=== PATIENT | female | born 1980 | race Caucasian/White ===

== ENCOUNTER 2016-12-24 12:12 | Observation (INO) | payer OTHER ==
--- NOTE | 2016-12-24 14:04 | GHP ---
[f rep st] HISTORY AND PHYSICAL DATE OF ADMISSION: 12/24/2016 CHIEF COMPLAINT: Brown discharge and possible leakage of fluid. HISTORY OF PRESENT ILLNESS: The patient is a 36-year-old 1, para 0 female at 39 weeks and 3 days estimated gestational age, with report of a brown watery discharge this morning and cramping o vernight. She reports it was primarily mucousy brown discharge, but then within an hour or 2 where it seemed more watery. She denies any current discharge or leakage of fluid, denies any vaginal ble eding and reports good movement. The patient's is significant for being GBS negativ e. PAST MEDICAL HISTORY: Abnormal Pap. PAST SURGICAL HISTORY: Jaw surgery and a LEEP. ALLERGIES: Sulfa, and trimethoprim. SOCIAL HISTORY: The patient is . She denies any tobacco, alcohol, or drug use. MEDICATIONS: vitamin. OBSTETRIC PROBLEM LIST: Rubella nonimmune, mild anemia on iron, status post the flu and Tdap shot. LABS: Blood type O positive. Antibody screen negative. Rubella nonimmune. Varicella imm une. RPR nonreactive. Urine culture negative. Hepatitis B surface antigen negative. HIV negative . One hour GTT normal. GBS negative. PHYSICAL EXAMINATION: VITAL SIGNS: Blood pressure 133/75, heart rate 93, respiratory rate 20, O2 s aturation 97%, temp 36.7 degrees Fahrenheit. heart rate tracing 130s, reactive and reassuring with spontaneous accelerations and moderate variability present and no decelerations. Tocometer: Mild irritability seen. No clear contractions. GENERAL: No acute distress, well-developed, well-n ourished female. ABDOMEN: Gravid and nontender. PELVIC: Sterile speculum exam: Negative pooling , Valsalva and ferning. The pH normal and acidic. Cervix was 1, 80, -3 and ballotable. ULTRASOUND: Bedside ultrasound was performed confirming baby is vertex and an RHONDA is 21.4 cm with g ood movement noted. ASSESSMENT: The patient is a 36-year-old 1, para 0 female at 39 weeks and 3 days estimated gestational age, with no signs of ruptured membranes. PLAN: Will discharge the patient home with labor precautions, kick count precautions and pree clampsia precautions. GBS negative. Her workup has been completed with no signs of ruptured membranes. /[id number]/MODL
== END 2016-12-24 13:30 | disposition home or self-care (01) ==
LOC: FLD 12:12
PROVIDERS: ADMIT Obstetrics & Gynecology; ATTEND Obstetrics & Gynecology
DX: Z34.03 Encounter for supervision of normal first pregnancy, third trimester (principal); N89.8 Other specified noninflammatory disorders of vagina; Z3A.39 39 weeks gestation of pregnancy
CPT/HCPCS: 59025; 76815; G0378

== ENCOUNTER 2016-12-31 09:50 | Observation (INO) | payer OTHER ==
--- NOTE | 2016-12-31 12:06 | SOAPPROG ---
SOAP Progress Note Assessment/Plan: Assessment: G1 at 40w3d with dec fm, reassuring status and normal fluid BPs slightly elevated, consistent with BPs in office over last week. Not meeting criteria for GHTN Not in labor Plan: Offered IOL today for dec FM s/p FREDI. After discussion parents prefer to go home now as they feel baby is moving more and return tomorrow for induction. Agree with plan. Will come to office at 1645 tmw for FB placement. Advised to call if FM remains decreased today or they change their mind and want to proceed with IOL labor. 12/31/16 12:06 Subjective: Dec FM x 24 hours. Baby is moving still but just not as pronounced and not as much. Getting 2-4 kicks/hr. Uncomplicated first , pt of Dr. White Objective: 132/72, 83 Gen: NAD Resp: unlabored CV: RRR Abd: gravid, soft, nontender Ext: no edema SVE: /-3/vtx/intact (no change from office). Membranes stripped TAUS: Vertex. RHONDA = 19.6 cm FHR baseline 140, mod rosie, + acc, no decel Contractions: few ICD10 Worksheet Patient Problems: Problems Problem Status Onset 40 weeks gestation of Acute Decreased movement Acute
== END 2016-12-31 12:05 | disposition home or self-care (01) ==
LOC: FLD 09:50
PROVIDERS: ADMIT Obstetrics & Gynecology; ATTEND Obstetrics & Gynecology
DX: O36.8130 Decreased fetal movements, third trimester, not applicable or unspecified (principal); O48.0 Post-term pregnancy; Z3A.40 40 weeks gestation of pregnancy
CPT/HCPCS: 59025; G0378

== ENCOUNTER 2017-01-01 05:50 | Inpatient (IN) | payer OTHER ==
[2017-01-01] MEDS ORDERED: EPSOM SALT 454 GM TP PRN (07:16)
[2017-01-01] MEDS ORDERED: LIDOCAINE 1% 30 ML SDV SC PRN (07:16)
[2017-01-01] MEDS ORDERED: OXYTOCIN/RINGERS LACTATE 1,000 ML IV PRN (07:16)
[2017-01-01] MEDS ORDERED: LR 1,000 ML IV PRN (07:16)
[2017-01-01] MEDS ORDERED: OLIVE OIL 118 ML BTL MISC PRN (07:16)
[2017-01-01] MEDS ORDERED: TERBUTALINE SULFATE 1 MG/ML VIAL IV PRN (07:16)
[2017-01-01 07:38] LABS: % IMMATURE GRANULYOCYTES 0.6 % (0.0-1.1); ABSOLUTE IMMATURE GRANULOCYTES 0.06 10^3/uL (0.00-0.10); ADD DIFF? NO; ADD MORPH? NO; ADD SCAN? NO; ATYPICAL LYMPHOCYTE FLAG 10 (0-99); FRAGMENT RBC FLAG 0 (0-99); HEMOGLOBIN 15.1 g/dL (12.6-16.3); LEFT SHIFT FLG 0 (0-99); LIPEMIA HEMOLYSIS FLAG 90 (0-99); MEAN CELL HEMOGLOBIN 32.5 pg (27.9-34.1); MEAN CELL HEMOGLOBIN CONCENTR. 35.1 g/dL (32.4-36.7); MEAN CELL VOLUME 92.7 fL (81.5-99.8); MEAN PLATELET VOLUME 12.6 fL (8.7-11.7); PLATELET CLUMPS FLAG 30 (0-99); PLATELET COUNT 173 10^3/uL (150-400); RED BLOOD CELL COUNT 4.64 10^6/uL (4.18-5.33); RED CELL DISTRIBUTION WIDTH 12.2 % (11.5-15.2)
[2017-01-01] MEDS ORDERED: OXYTOCIN 10 UNIT/ML VIAL ONE (07:51)
[2017-01-01] MEDS ORDERED: AMMONIA AROMATIC 1 EACH AMP IH ONE (07:51)
[2017-01-01] MEDS ORDERED: LIDOCAINE 1% 30 ML SDV ONE (07:51)
[2017-01-01] MEDS ORDERED: OLIVE OIL 118 ML BTL ONE (07:51)
[2017-01-01] MEDS ORDERED: TERBUTALINE SULFATE 1 MG/ML VIAL ONE (07:51)
[2017-01-01] MEDS ORDERED: MISOPROSTOL 200 MCG TAB ONE (07:52)
--- NOTE | 2017-01-01 08:07 | GHP ---
[f rep st] HISTORY AND PHYSICAL DATE OF ADMISSION: 01/01/2017 CHIEF COMPLAINT: Leaking fluid. HISTORY OF PRESENT ILLNESS: Patient is a healthy 36-year-old, G1, P0, at 40 weeks and 4 days with an FREDI of 12/28 dated by last menstrual period and first- trimester ultrasound. She awoke this morning at 4:45 a.m. and noticed a large gush of clear fluid. She started having contractions shortly afterwards, and she was advised to come into the hospital for evaluation. At time of admission to hospital, she was confirmed ruptured with clear fluid, was in a regular contraction pattern, and was admitted for labor. OB labs notable for blood type O positive, antibody screen negative. First- trimester hematocrit 36.9. Immune to varicella. Nonimmune to rubella. Nonreactive to RPR. Negative HIV. Negative hepatitis B surface antigen. Negative urine culture. Her 1-hour Glucola was normal at 120. Her GBS was negative. She declined genetic screening and had a normal anatomy ultrasound. PAST MEDICAL HISTORY: Significant for abnormal Pap in the past. PAST SURGICAL HISTORY: Jaw surgery in 1995, LEEP in 2004. MEDICATIONS: vitamins. ALLERGIES: Sulfa. FAMILY HISTORY: Noncontributory. SOCIAL HISTORY: No alcohol, tobacco, or drug use. . OBJECTIVE: VITAL SIGNS: Within normal limits, reviewed. GENERAL: Alert and oriented x4. Mild distress with contractions. LUNGS: Respirations nonlabored. CARDIOVASCULAR: Regular rate and rhythm. ABDOMEN: Gravid, soft, nontender. EXTREMITIES: No edema. STERILE VAGINAL EXAM: Copious clear fluid. Cervix initially 1 cm with a band of scar tissue, was able to be stretched to 3 cm, 90% effaced, -2 station. heart rate baseline 130, moderate variability, positive accelerations, no decelerations. Tocometer contractions every 2-3 minutes. LABORATORIES: Pending. ASSESSMENT AND PLAN: The patient is a 36-year-old 1, para 0 at 40w4d with rupture of membranes and now progressing into labor. GBS negative. status reassuring. Admit to Labor and Delivery. Intermittent monitoring as long as status remained reassuring. CBC and type and screen to be drawn. Saline lock IV. Expectant management with plan for a vaginal delivery. Pitocin augmentation if indicated. plan reviewed. /[id number]/MODL MTDD
--- NOTE | 2017-01-01 10:33 | OBPROG ---
OBG Progress Note Assessment/Plan: Assessment: 40w4d, srom/early labor making progress, progressed from 3 to 5 cm Plan: continue expectant management intermittent monitoring pt to be followed by long haul truck driver [place]IA [place] for remainder of labor 01/01/17 10:32 Subjective: contraction about every 5 min, but getting more intense. ongoing leakage of clear fluid Objective: 01/01/17 07:30 Patient ABO/Rh O POSITIVE 01/01/17 08:10 - SVE Dilation (cm): 5 Effacement (%): 90 Station: -2 Current Contraction Pattern: Regular FHR (bpm): 130 FHR Pattern Variability: Moderate FHR Category: 1 Membranes: SROM Amniotic Fluid Color: Clear ICD10 Worksheet Patient Problems: Problems Problem Status Onset 40 weeks gestation of Acute Decreased movement Acute
[2017-01-01] MEDS ORDERED: ACETAMINOPHEN 325 MG TAB PO PRN (16:47)
[2017-01-01] MEDS ORDERED: DOCUSATE SODIUM 100 MG CAP PO PRN (16:47)
[2017-01-01] MEDS ORDERED: HYDROCODONE/APAP 5/325 TAB PO PRN (16:47)
[2017-01-01] MEDS ORDERED: SIMETHICONE 80 MG TAB CHEW PO PRN (16:47)
[2017-01-01] MEDS ORDERED: HYDROCORTISONE 0.5% CREAM TP PRN (16:47)
--- NOTE | 2017-01-01 16:50 | OBPROC ---
- Labor and Delivery Onset of Contractions Date: 01/01/17 Onset of Contractions Time: 05:30 Onset of Contractions Type: Spontaneous Rupture of Membranes Date: 01/01/17 Rupture of Membranes Time: 04:45 Rupture of Membranes Type: Spontaneous Amniotic Fluid Color: Clear Dilation Complete Time: 15:50 Delivery Type: Spontaneous Placenta Delivery Date: 01/01/17 Placenta Delivery Time: 16:20 Episiotomy/Laceration: 1st Degree Repair: 3-0, Vicryl EBL: 250 Complications: None - Medications Labor Augmentation/Induction Meds Used: None - Info Infant A Delivery Date: 01/01/17 Delivery Time: 16:16 Sex of : Male Score (1 Min): 8 Score (5 Min): 9
[2017-01-01] MEDS: IBUPROFEN 600 MG TAB PO PRN (23:09)
[2017-01-01 23:10] VITALS: TEMP 98
[2017-01-02] MEDS: IBUPROFEN 600 MG TAB PO PRN ×3 (05:42→18:35)
--- NOTE | 2017-01-02 08:16 | SOAPPROG ---
SOAP Progress Note Assessment/Plan: Assessment: 36 y.o. PPD#1 s/p . Recovering well with good pain control. well. Plan: Routine care. consult. Anticipate discharge to home tomorrow. 01/02/17 08:13 Subjective: Reports feeling well with good pain control and minimal vaginal bleeding. infant well. Eating and drinking without nausea or vomiting. Has been out of bed and ambulating well without vertigo. Appropriate mood with good support system. Objective: Vital Signs Temp Pulse Resp BP Pulse Ox 36.6 C 89 18 122/70 H 95 01/01/17 23:09 01/01/17 23:09 01/01/17 23:09 01/01/17 23:09 01/01/17 23:09 Laboratory Results 01/01/17 07:30 01/01/17 01/02/17 01/03/17 05:59 05:59 05:59 Output Total 300 Balance -300 - Time Spent With Patient Time Spent With Patient: 20 minutes - Pending Discharge Pending Discharge Within 24 Hours: Yes Pending Discharge Date: 01/03/17 Pending Discharge Time: 11:00 Physical Exam - Physical Exam General Appearance: WD/WN, alert, no apparent distress EENT: normal ENT inspection Neck: non-tender, full range of motion, normal inspection Respiratory: lungs clear, normal breath sounds Cardiac/Chest: regular rate, rhythm Abdomen: non-tender, soft Pelvic Exam: normal external exam Rectal: deferred Back: Normal inspection Skin: normal color, warm/dry Lymphatic: no adenopathy Extremities: normal range of motion, non-tender, normal inspection Neuro/Psych: alert, normal mood/affect, oriented x 3 ICD10 Worksheet Patient Problems: Problems Problem Status Onset 40 weeks gestation of Acute Decreased movement Acute
[2017-01-03] MEDS: IBUPROFEN 600 MG TAB PO PRN ×3 (00:54→14:17)
--- NOTE | 2017-01-03 08:57 | OBGCSDC ---
General Delivery Information - General Info : 1 Para: 1 Delivery Date: 01/01/17 Delivery Physician/CNM: Rafaela Fuentes Labs: Patient ABO/Rh O POSITIVE 01/01/17 08:10 Hct 43.0 % (38.0-47.0) 01/01/17 07:30 - Info A Sex of : Male Score (1 Min): 8 Score (5 Min): 9 Vaginal - Diagnosis Labor: Spontaneous Rupture of Membranes Type: Spontaneous Amniotic Fluid Color: Clear Repair: 3-0, Vicryl Complications: None - Operations/Procedures Delivery Type: Spontaneous - Hospital Course Antepartum: Spontaneous ROM/labor Intrapartum: Uncomplicated : Routine care - Delivery EBL: 250 Discharge Information - Discharge Information Condition: Good Instruction/Follow Up: Six Weeks Discharge Physician/CNM: Clara Craig Discharge Date: 01/03/17 Dictated: No
[2017-01-03] MEDS ORDERED: MEASLES,MUMPS&RUBELLA VACC/PF 0.5 ML VIAL SC ONE ×2 (08:58→12:00)
[2017-01-03 10:07] VITALS: BP 119/76; PULSE 85; RESP 16; O2SAT 97
== END 2017-01-03 15:25 | disposition home or self-care (01) | DRG 775 ==
LOC: FLD 05:50 → FOB 20:34
PROVIDERS: ADMIT Obstetrics & Gynecology; ATTEND Obstetrics & Gynecology
DX: O48.0 Post-term pregnancy (principal); O70.0 First degree perineal laceration during delivery; O32.8XX0 Maternal care for other malpresentation of fetus, not applicable or unspecified; Z3A.40 40 weeks gestation of pregnancy; Z37.0 Single live birth
CPT/HCPCS: J2590; J3105

== ENCOUNTER → 2017-01-10 | Outpatient (CLI) | payer OTHER | LOC: FLACT 09:57 | PROVIDERS: ATTEND Midwife | DX: O92.79 Other disorders of lactation (principal) | CPT/HCPCS: G0463 ==

== ENCOUNTER → 2017-02-01 | Outpatient (CLI) | payer OTHER | LOC: FIMAGING 15:48 | PROVIDERS: ATTEND Internal Medicine | DX: M54.6 Pain in thoracic spine (principal) ==

== ENCOUNTER 2017-09-18 03:44 | Emergency (ER) | payer OTHER ==
[2017-09-18 03:53] VITALS: O2SAT 97
[2017-09-18] MEDS ORDERED: ONDANSETRON 4 MG/2 ML VIAL IVP ONE (04:03)
[2017-09-18] MEDS ORDERED: NS 1,000 ML IV ONE ×2 (04:03)
--- NOTE | 2017-09-18 04:03 | EDPHY ---
H & P Stated Complaint: N/V/D HPI/ROS: HPI CHIEF COMPLAINT: Nausea, vomiting, diarrhea, 5 weeks HISTORY OF PRESENT ILLNESS: Patient very pleasant 37-year-old female, she presents emergency room with 12 hr of nausea vomiting and diarrhea. Unable to tolerate p.o.. She states she feels dehydrated decided come the emergency room for evaluation. She denies any abdominal pain. She does state that she is 5 weeks she denies any vaginal discharge, pelvic cramping or lower abdominal pain. Denies chest pain shortness of breath. Denies fever. She does report that she has an 8 month home with diarrhea as well. Past Medical History: No significant medical history Past Surgical History: No significant surgical history Social History: Denies drugs alcohol tobacco Family History: Noncontributory ROS REVIEW OF SYSTEMS: A comprehensive 10 point review of systems is otherwise negative aside from elements mentioned in the history of present illness. Exam Constitutional appears well toxic triage nursing summary reviewed, vital signs reviewed, awake/alert. Eyes normal conjunctivae and sclera, EOMI, PERRLA. HENT normal inspection, atraumatic, dry mucus membranes, no epistaxis, neck supple/ no meningismus, no raccoon eyes. Respiratory clear to auscultation bilaterally, normal breath sounds, no respiratory distress, no wheezing. Cardiovascular rate normal, regular rhythm, no murmur, no edema, distal pulses normal. Gastrointestinal soft, non-tender, no rebound, no guarding, normal bowel sounds, no distension, no pulsatile mass. Genitourinary no CVA tenderness. Musculoskeletal no midline vertebral tenderness, full range of motion, no calf swelling, no tenderness of extremities, no meningismus, good pulses, neurovascularly intact. Skin pink, warm, & dry, no rash, skin atraumatic. Neurologic awake, alert and oriented x 3, AAOx3, moves all 4 extremities equally, motor intact, sensory intact, CN II-XII intact, normal cerebellar, normal vision, normal speech. Psychiatric normal mood/affect. Heme/Lymph/Immune no lymphadenopathy. Differential Diagnosis: Includes but not limited to in a particular order acute dehydration, electrolyte disturbance, acute nausea vomiting diarrhea, urinary tract infection, a GI bug Medical Decision Making: Plan for this patient IV establishment with fluid bolus 2 L normal saline, IV friend for nausea, check electrolytes, UA, and re- evaluate. Re-evaluation: 0611: Re-examination at this time patient is resting comfortably feels much better after IV fluids. She has received 2 L of normal saline here in the emergency room is IV Zofran. Re-examination of her abdomen is soft nontender she is not vomiting she has not had any diarrhea here. Her urinalysis results are pending. She would like to go home. She is afebrile. Feels much better. I will provide her prescription for Zofran. She does understand return emergency room she develops worsening abdominal pain fever or vomiting. Source: Patient - Personal History LMP (Females 10-55): Current Tetanus/Diphtheria Vaccine: Unsure Current Tetanus Diphtheria and Acellular Pertussis (TDAP): Unsure - Medical/Surgical History Hx Asthma: No Hx Chronic Respiratory Disease: No Hx Diabetes: No Hx Cardiac Disease: No Hx Renal Disease: No Hx Cirrhosis: No Hx Alcoholism: No Hx HIV/AIDS: No Hx Splenectomy or Spleen Trauma: No Other PMH: Jaw reconstruction age 16, Adnoidectomy as a child. hx of abnormal pap, LEEP 2004 - Social History Smoking Status: Never smoked Constitutional: Initial Vital Signs Temperature (C) 36.6 C 09/18/17 03:47 Heart Rate 120 H 09/18/17 03:47 Respiratory Rate 17 09/18/17 03:47 Blood Pressure 123/75 H 09/18/17 03:47 O2 Sat (%) 97 09/18/17 03:47 O2 Delivery Mode Room Air Allergies/Adverse Reactions: Sulfa (Sulfonamide Antibiotics) Allergy (Verified 05/13/16 18:01) Home Medications: Medication Instructions Recorded Vit27&Calcium/Iron/FA 1 tab PO DAILY 12/31/16 [] Ondansetron HCl [Zofran] 4 mg PO Q4-6PRN PRN #10 tablet 09/18/17 Medical Decision Making - Data Points Laboratory Results: Laboratory Results 09/18/17 04:06 09/18/17 04:06 09/18/17 09/18/17 09/18/17 05:40 04:06 04:06 WBC 10.16 10^3/uL H 10^3/uL (3.80-9.50) RBC 4.53 10^6/uL 10^6/uL (4.18-5.33) Hgb 15.4 g/dL g/dL (12.6-16.3) Hct 41.9 % % (38.0-47.0) MCV 92.5 fL fL (81.5-99.8) MCH 34.0 pg pg (27.9-34.1) MCHC 36.8 g/dL H g/dL (32.4-36.7) RDW 11.3 % L % (11.5-15.2) Plt Count 232 10^3/uL 10^3/uL (150-400) MPV 10.7 fL fL (8.7-11.7) Neut % (Auto) 93.4 % H % (39.3-74.2) Lymph % (Auto) 3.7 % L % (15.0-45.0) [place] % (Auto) 2.3 % L % (4.5-13.0) Eos % (Auto) 0.1 % L % (0.6-7.6) Baso % (Auto) 0.2 % L % (0.3-1.7) Nucleat RBC Rel Count 0.0 % % (0.0-0.2) Absolute Neuts (auto) 9.49 10^3/uL H 10^3/uL (1.70-6.50) Absolute Lymphs (auto) 0.38 10^3/uL L 10^3/uL (1.00-3.00) Absolute Monos (auto) 0.23 10^3/uL L 10^3/uL (0.30-0.80) Absolute Eos (auto) 0.01 10^3/uL L 10^3/uL (0.03-0.40) Absolute Basos (auto) 0.02 10^3/uL 10^3/uL (0.02-0.10) Absolute Nucleated RBC 0.00 10^3/uL 10^3/uL (0-0.01) Immature Gran % 0.3 % % (0.0-1.1) Immature Gran # 0.03 10^3/uL 10^3/uL (0.00-0.10) Sodium 142 mEq/L mEq/L (135-145) Potassium 4.1 mEq/L mEq/L (3.5-5.2) Chloride 104 mEq/L mEq/L (97-110) Carbon Dioxide 21 mEq/l L mEq/l (22-31) Anion Gap 17 mEq/L H mEq/L (8-16) BUN 17 mg/dL mg/dL (7-23) Creatinine 0.7 mg/dL mg/dL (0.6-1.0) Estimated GFR > 60 Glucose 175 mg/dL H mg/dL (70-100) Calcium 9.6 mg/dL mg/dL (8.5-10.4) Total Bilirubin 1.5 mg/dL H mg/dL (0.1-1.4) Conjugated Bilirubin 0.3 mg/dL mg/dL (0.0-0.5) Unconjugated Bilirubin 1.2 mg/dL H mg/dL (0.0-1.1) AST 16 IU/L IU/L (14-46) ALT 31 IU/L IU/L (9-52) Alkaline Phosphatase 66 IU/L IU/L (38-126) Total Protein 7.6 g/dL g/dL (6.3-8.2) Albumin 4.8 g/dL g/dL (3.5-5.0) Lipase 55 IU/L IU/L (23-300) Urine Color Pending Urine Appearance Pending Urine pH Pending Ur Specific [place] Pending Urine Protein Pending Urine Ketones Pending Urine Blood Pending Urine Nitrate Pending Urine Bilirubin Pending Urine Urobilinogen Pending Ur Leukocyte Esterase Pending Urine Glucose Pending Medications Given: Discontinued Medications Sodium Chloride (Ns) 1,000 mls @ 0 mls/hr IV EDNOW ONE; Wide Open PRN Reason: Protocol Stop: 09/18/17 04:04 Last Admin: 09/18/17 04:13 Dose: 1,000 mls Sodium Chloride (Ns) 1,000 mls @ 0 mls/hr IV EDNOW ONE; Wide Open PRN Reason: Protocol Stop: 09/18/17 04:04 Last Admin: 09/18/17 04:13 Dose: 1,000 mls Ondansetron HCl (Zofran) 4 mg IVP EDNOW ONE Stop: 09/18/17 04:04 Last Admin: 09/18/17 04:14 Dose: 4 mg Departure - Departure Disposition: Home, Routine, Self-Care Clinical Impression: Nausea vomiting and diarrhea Condition: Good Instructions: Acute Nausea and Vomiting (ED) Additional Instructions: 1. Return to the emergency room if you have worsening symptoms includes worsening vomiting, fever, abdominal pain. 2. [place] diet next 24-48 hours. 3. Zofran as needed for nausea. 4. Return if worse. Referrals: Melissa Cook MD [Primary Care Provider] - As per Instructions Prescriptions: Ondansetron HCl [Zofran] 4 mg PO Q4-6PRN PRN #10 tablet PRN Reason: Nausea/Vomiting, Use 1st
[2017-09-18 04:17] LABS: PLATELET COUNT 232 10^3/uL (150-400)
[2017-09-18 06:39] VITALS: BP 113/65; PULSE 89; RESP 16; TEMP 97.7
== END 2017-09-18 06:47 | disposition home or self-care (01) ==
DX: O21.1 Hyperemesis gravidarum with metabolic disturbance (principal); O99.89 Other specified diseases and conditions complicating pregnancy, childbirth and the puerperium; R19.7 Diarrhea, unspecified; E86.9 Volume depletion, unspecified; Z3A.01 Less than 8 weeks gestation of pregnancy
CPT/HCPCS: 96374; J2405

== ENCOUNTER → 2017-12-31 | Outpatient (CLI) | payer OTHER | LOC: FIMAGING 07:30 | PROVIDERS: ATTEND Hospitalist | DX: O09.522 Supervision of elderly multigravida, second trimester (principal); Z87.410 Personal history of cervical dysplasia; Z3A.19 19 weeks gestation of pregnancy ==

== ENCOUNTER 2018-05-20 14:12 | Inpatient (IN) | payer OTHER ==
[2018-05-20] MEDS ORDERED: IBUPROFEN 600 MG TAB PO PRN (14:22)
[2018-05-20] MEDS ORDERED: MISOPROSTOL 200 MCG TAB PO PRN (14:22)
[2018-05-20] MEDS ORDERED: LIDOCAINE 1% 300 MG/30 ML SDV SC PRN (14:22)
[2018-05-20] MEDS ORDERED: AMMONIA AROMATIC 1 EACH AMP IH PRN (14:22)
[2018-05-20] MEDS ORDERED: OXYTOCIN/RINGERS LACTATE 1,000 ML IV PRN (14:22)
[2018-05-20] MEDS ORDERED: TERBUTALINE SULFATE 1 MG/ML VIAL IV PRN (14:22)
[2018-05-20] MEDS ORDERED: LR 1,000 ML IV PRN (14:22)
[2018-05-20] MEDS ORDERED: OLIVE OIL 118 ML BTL MISC PRN (14:22)
[2018-05-20] MEDS ORDERED: EPSOM SALT 454 GM TP PRN (14:22)
[2018-05-20] MEDS ORDERED: OXYTOCIN 100 UNITS/10 ML VIAL IM ONE (14:24)
--- NOTE | 2018-05-20 14:26 | PDGENHP ---
History and Physical History and Physical: CARE: [facility] HPI: Patient is a 38 yo G 2 P 1 @ 39.4 weeks that presents to L&D with complaints of uterine ctx. EDC: 05/24/18 which is based on LMP: 08/17/18 which is known and consistent with Ultrasound at 9 weeks. Her is complicated by: AMA, low-lying placenta that was resolved 28 weeks. Review of Systems: Constitutional: Denies any fever, chills, or fatigue HEENT: denies any visual changes, difficulty swallowing, hearing loss Cardiovascular: Denies any chest pain, palpitations, leg swelling Respiratory: denies any cough, wheezing, or shortness of breathe GI: Denies any nausea, vomiting, diarrhea, constipation : denies any dysuria, urgency, frequency, vaginal bleeding Musculoskeletal: denies any muscle or bone pain Skin: denies any rashes Neuro: denies any headache, seizures, lightheadedness, dizziness, or loss of consciousness Psychiatric: denies any depression, anxiety, or SI/HI thoughts HISTORY: Previous OB history: Social history: , employed at [employer] Family history: Past medical history: pylonephritis Past surgical history: LEEP Medications: PNV, DHA, Fish oil Allergies (list reaction): NKDA LABS: Rh: O+ ABS: Neg Rubella: Immune HbsAg: NR HIV: NR VDRL: NR 1hr: 135 GC: Neg Chlamydia: Neg Pap: Normal GBS: neg BMI: (prepreg) PHYSICAL EXAM: Constitutional: WN, A&Ox3 HEENT: normocephalic atraumatic, supple Heart: RRR, no murmur Chest: CTA-B Skin: warm, dry, intact Abdomen: Soft, nontender, gravid SVE: 680 in office this AM Extremities: no edema, negative homans sign Neuro: grossly normal Psych: normal affect assessment: FHT baseline 135, + accels, no decels, moderate variability Contractions: toco q 3-4 min Assessment: 1) 38 yo G 2 P 1 with IUP@ 39w3d 2) active labor 3) GBS neg 4) Cat 1 FHR tracing Plan: 1) Admit to L&D 2) anticipate
[2018-05-20] MEDS ORDERED: OXYTOCIN 10 UNIT/ML VIAL ONE (15:47)
--- NOTE | 2018-05-20 16:51 | OBDEL ---
<Julia Case E - Last Filed: 05/20/18 17:57> Info Type: Vaginal Presentation at Delivery: Vertex L&D Analgesia/Anesthesia Type: None GBS+: No - Hospital Course Intrapartum: 05/20/18 16:48 progressed rapidly to complete after admission. Pt used director of golf support and hydrotherapy for pain relief in labor. Indications for Delivery: Spontaneous Labor, SROM Vaginal Delivery - Delivery Provider Delivery Physician/CNM: Julia Case Proctoring Provider: Otilio Atkins - Labor and Delivery Onset of Contractions Date: 05/20/18 Onset of Contractions Time: 13:25 Onset of Contractions Type: Spontaneous Rupture of Membranes Date: 05/20/18 Rupture of Membranes Time: 16:15 Rupture of Membranes Type: Spontaneous Amniotic Fluid Color: Clear, Meconium Stained Dilation Complete Date: 05/20/18 Dilation Complete Time: 16:00 Placenta Delivery Date: 05/20/18 Placenta Delivery Time: 16:33 Total Hours of Labor: 3 Laceration: 1st Degree Vaginal Sponge Count Correct: Yes Vaginal Needle Count Correct: Yes Vaginal Sweep Performed: Yes EBL: 200 Delivery Events: None Delivery Comment: progressed well to complete, SROM with meconium noted 1 min prior to delivery [place] Data FREDI: 05/24/18 Gestational Age: 39 week(s) and 3 day(s) Phillips Delivery Date: 05/20/18 Delivery Time: 16:25 Sex of : Male Score (1 Min): 8 Score (5 Min): 9 ICD10 Worksheet Patient Problems: Problems Problem Status Onset 40 weeks gestation of Acute Vaginal delivery Acute <Otilio Atkins E - Last Filed: 05/20/18 18:03> Info Intrapartum Medications: Generic Name Dose Route Start Last Admin Trade Name Freq PRN Reason Stop Dose Admin Lidocaine HCl 300 mg 05/20/18 14:22 05/20/18 16:30 Lidocaine Hcl 1% SC 11/16/18 14:21 300 mg ONCE PRN Administration episiotomy Discontinued Medications Generic Name Dose Route Start Last Admin Trade Name Freq PRN Reason Stop Dose Admin Ibuprofen 600 mg 05/20/18 14:22 05/20/18 17:31 Motrin PO 600 mg ONCE PRN Administration post , pain
[2018-05-20] MEDS ORDERED: ACETAMINOPHEN 325 MG TAB ONE (17:23)
[2018-05-20] MEDS: ACETAMINOPHEN 325 MG TAB PO SCH (19:40)
[2018-05-20] MEDS: IBUPROFEN 600 MG TAB PO SCH (23:27)
[2018-05-21] MEDS: ACETAMINOPHEN 325 MG TAB PO SCH ×4 (01:48→19:48)
[2018-05-21] MEDS: IBUPROFEN 600 MG TAB PO SCH ×3 (05:26→18:35)
[2018-05-21] MEDS: DOCUSATE SODIUM 100 MG CAP PO PRN (14:01)
--- NOTE | 2018-05-21 17:16 | OBPP ---
Progress Note Assessment/Plan: Assessment: Stable day 1 PP Establishing Plan: Discharge home tomorrow 05/21/18 17:16 Subjective/ Course: 05/21/18 17:15 Very happy with . Doing well overall. Plans on discharging home tomorrow Objective: 05/21/18 05:40 Temp Pulse Resp BP Pulse Ox 36.6 C 78 16 111/68 96 05/21/18 08:00 05/21/18 08:00 05/21/18 08:00 05/21/18 08:00 05/20/18 20:35 Breasts: nipples intact bilaterally; soft Neg Homans Uterine Position/Fundal Height: Umbilicus -1 Uterine Tone: Firm
[2018-05-22] MEDS: IBUPROFEN 600 MG TAB PO SCH ×2 (00:37→06:15)
[2018-05-22] MEDS: ACETAMINOPHEN 325 MG TAB PO SCH ×2 (02:38→09:58)
[2018-05-22] MEDS: DOCUSATE SODIUM 100 MG CAP PO PRN (09:58)
--- NOTE | 2018-05-22 10:27 | OBGCSDC ---
General Delivery Information - General Info : 2 Para: 2 Abortions: 0 Type: Vaginal L&D Analgesia/Anesthesia Type: None Admission Date: 05/20/18 Labs: Hct 38.9 % (38.0-47.0) 05/21/18 05:40 - Hospital Course : 05/21/18 17:15 Very happy with . Doing well overall. Plans on discharging home tomorrow 05/22/18 10:26 S) Pt doing well, reports min pain and bleeding. she is ambulating and voiding without difficulty. She is . She desires discharge home today. O) VSS, afebrile constitutional: WNF, A&Ox3 HEENT: normocephalic, atraumatic, supple Heart: RRR, No murmur Chest: CTA-B Breasts: soft, nontender, no engorgement Abdomen: Soft, nontender Uterus: Firm at U-2 Lochia: Minimal rubra Perineum: Intact, healing well Extremities: Trace edema, and negative Marin's sign Neuro: Grossly normal A) 38 year-old S/P PPD#2 P) Discharge home today Continue Pelvic rest x6wks Discussed danger signs (infection, preeclampsia, depression, heavy bleeding, etc ) RTO in 2/4/6 weeks Vaginal - Delivery Provider Delivery Physician/CNM: Julia Case - Diagnosis Labor: Spontaneous Rupture of Membranes Type: Spontaneous Amniotic Fluid Color: Clear, Meconium Stained Laceration: 1st Degree Delivery Events: None - Delivery EBL: 200 [place] Data FREDI: 05/24/18 Gestational Age: 39 week(s) and 5 day(s) Phillips Delivery Date: 05/20/18 Delivery Time: 16:25 Sex of : Male Weight (gm): 3490 g Score (1 Min): 8 Score (5 Min): 9 Discharge Information - Discharge Information Condition: Good Instruction/Follow Up: Two Weeks, Four Weeks, Six Weeks
[2018-05-22 12:26] VITALS: BP 121/63
== END 2018-05-22 12:15 | disposition home or self-care (01) | DRG 775 ==
LOC: FLD 14:12 → OBSVTOIN 14:12 → FOB 19:48
PROVIDERS: ADMIT Advanced Practice Midwife; ATTEND Advanced Practice Midwife
DX: O70.0 First degree perineal laceration during delivery (principal); Z37.0 Single live birth; Z3A.39 39 weeks gestation of pregnancy
CPT/HCPCS: J2590; J3105